=== PATIENT | male | born 1970 | race Caucasian/White ===

== ENCOUNTER 2016-05-14 09:33 | Emergency (ER) | payer MEDICAID ==
[2016-05-14 09:44] VITALS: TEMP 98.8; BMI 28.3
[2016-05-14] MEDS ORDERED: NS 1,000 ML IV ONE (09:59)
[2016-05-14] MEDS ORDERED: SODIUM CHLORIDE 0.9% 10 ML FLUSH FLUSH PRN (09:59)
--- NOTE | 2016-05-14 10:08 | EDPRACDOC ---
- General Information Chief Complaint: Generalized Weakness Information Source: Patient Mode of Arrival: Car Home Medications: Home Medications Gabapentin 100 mg PO TID #90 cap 05/14/16 Sitagliptin Phos/Metformin HCl [Janumet 50-500 mg Tablet] 1 each PO BID #60 tablet 05/14/16 Allergies/Adverse Reactions: Allergies Allergy/AdvReac Type Severity Reaction Status Date / Time No Known Allergies Allergy Verified 05/14/16 09:42 - History of Present Illness Onset: 1 week Complains Of: Reports: High Blood Sugar, Polyuria, Polydipsia Relevant History: Reports: NIDDM Medication Use: Reports: Normal Blood Glucose Result: 256 Vomiting - TNTC: No Associated Signs and Symptoms: Reports: Cough Abdominal Pain Location: Reports: None Abdominal Pain Quality: Reports: None Other History: Pt states tingling in hands and feet, high BS, polyuria and polydipsia, congestion, cough x 1 week. Pt states yrs ago he was on insulin, lost wt and was put on metformin then stopped everything due to diet controlled for yrs. Pt states about 1 months ago he became sick and was started back on metformin. Pt states he feels like this isn't working. Denies fever, earache, sore throat, cp, sob, abd pain, changes in bowel or bladder, rash. ED Past Medical History - History Reviewed Yes Nurses notes reviewed and agree except as marked - Patient Medical History Psychological History: Reports: Depression Systemic History: Reports: Diabetes - Social Medical History Smoking Status: Heavy tobacco smoker (5 or more cigarettes/day or daily pipe/ cigar) ETOH: None Substance Abuse: None EDM Review of Systems - Review of Systems Constitutional: No Symptoms Reported. negative: Fever, Chills, Weakness, Fatigue, Loss of Appetite Ears: No Symptoms Reported. negative: Pain, Hearing Loss, Drainage, Ear Pulling Throat: No Symptoms Reported. negative: Pain, Swelling Nose: Congestion Mouth: No Symptoms Reported. negative: Pain, Drooling Respiratory: Cough Cardiovascular: No Symptoms Reported. negative: Chest Pain, Palpitations, Syncope, Edema, Orthopnea, PND, Skin Mottling, Cyanosis Gastrointestinal: No Symptoms Reported. negative: Pain, Constipation, Nausea, Vomiting, Diarrhea, Melena, Formula Intolerance Genitourinary: No Symptoms Reported. negative: Dysuria, Hematuria, Frequency, Discharge, Bleeding, Testicular Pain, Neurological: Tingling. negative: No Symptoms Reported, Dizziness, Gait Difficulty, Headache, Numbness, Seizure, Speech Difficulty, Weakness Musculoskeletal: No Symptoms Reported. negative: Neck, Chestwall, Ribs, Back, Shoulder, Arm, Elbow, Forearm, Wrist, Hand, Pelvis, Hip, Femur, Knee, Leg, Ankle , Foot Integumentary: No Symptoms Reported. negative: Itching, Rash, Bruising, Wound Allergic/Immunologic: No Symptoms Reported. negative: Hives, Itching Hematologic: No Symptoms Reported. negative: Lymphadenopathy, Easy Bruising, Easy Bleeding Endocrine: Excessive Thirst, Polyuria Psychiatric: No Symptoms Reported. negative: Anxiety, Depression, Hallucinations, Insomnia, Suicidal - Physical Exam Constitutional: Alert Oriented to: Time, Person, Place Last recorded Vital Signs: Last Vital Signs Temp 98.8 F 05/14/16 09:42 Pulse 102 05/14/16 09:42 Resp 18 05/14/16 09:42 BP 119/80 05/14/16 09:42 Pulse Ox 97 05/14/16 09:42 Oxygen Pulse Oxygen Saturation 97 O2 Device Room Air Oxygen Flow Rate Fraction of Inspired Oxygen ( FIO2) - HEENT Head: Normal ( normocephalic) Eye Exam: Normal (PERRL, EOMI, Sclera white) Oropharynx: Normal (Pharynx:Moist without exudate,Gums-no swelling) Tympanic Membrane: Normal ENT EAC: Normal Nose: No Symptoms Reported (septum midline) Neck: Normal (FROM, trachea at midline) - Respiratory/Cardiovascular Respiratory: Normal - CTA (BBS clear to auscultation without adventitious sounds ) Cardiovascular: Normal (RRR without murmur, gallop or rub) - GI Auscultation: Normal (NABS) Palpation: Normal (Soft,No rebound or guarding, non distended) Tenderness: Non tender - Musculoskeletal Back: Normal (Non-Tender) Extremities: Normal (Normal tone, Pulses 2+ No cyanosis or edema, FROM) - Integumentary Skin: Normal, Warm, Dry Lymphatics: Normal (no adenopathy) - Neurologic Memory Impaired: Normal Motor Function: Normal (Normal tone, Pulses 2+ No cyanosis or edema, FROM) Mood Description: Normal Perception: Normal - Differential Diagnosis Dehydration, Diabetic Ketoacidosis, Hyperglycemia - Results 05/14/16 10:10 05/14/16 10:10 POC Capillary Glucose 256 MG/DL (70-99) H 05/14/16 09:46 Lab Results 05/14/16 09:46 POC Capillary Glucose 256 H - Additional Information discussed with thad Thao to d/c home - Departure Disposition: Home Condition: Good Final Diagnosis: Hyperglycemia Diabetic neuropathy Qualifiers: Diabetes mellitus type: type 2 Diabetes mellitus complication detail: diabetic polyneuropathy Qualified Code(s): E11.42 - Type 2 diabetes mellitus with diabetic polyneuropathy Instructions: Diabetic Neuropathy (ED), Diabetes Mellitus Type 2 in Adults (ED) , Managing Diabetes During Sick Days (ED), Diabetes and Exercise Education/Counseling Given To: Patient Education/Counseling Given Regarding: Diagnosis, Treatment, Follow Up Referrals: None,No Provider [Primary Care Provider] - One Week Gavin Mei MD [Staff Physician] - One Week Prescriptions: Gabapentin 100 mg PO TID #90 cap Sitagliptin Phos/Metformin HCl [Janumet 50-500 mg Tablet] 1 each PO BID #60 tablet Forms: Patient Discharge Instructions, ED Discharge Instructions Additional Instructions: Follow up with Personal MD for continued management. Return for worse or different symptoms.
[2016-05-14 10:23] LABS: AUTOMATED BASOPHIL 0.5 % (0-2); AUTOMATED EOSINOPHIL 4.4 % (0-5); AUTOMATED MONOCYTE 10.4 % (3-10); AUTOMATED NEUTROPHIL 54.7 % (45-76); MPV 8.8 fL (7.4-10.4)
[2016-05-14 10:26] LABS: VENOUS BEb -2.9 (+/- 2); VENOUS TCO2 25.1 MMOL/L (23-27)
[2016-05-14 10:43] LABS: BLOOD UREA NITROGEN 18 MG/DL (9-20); CALCIUM 8.9 MG/DL (8.4-10.2); CALCULATED OSMOLALITY 278 MOs/Kg (270-290); CHLORIDE 102 mEq/L (98-107); GLUCOSE 282 MG/DL (70-99); SODIUM LEVEL 138 mEq/L (137-146); TOTAL PROTEIN 7.9 G/DL (6.3-8.2)
[2016-05-14 11:27] LABS: LEUKOCYTES/URINE NEG (NEGATIVE); NITRITE/URINE NEG (NEGATIVE); RBC/URINE 0-2 (0-2); URINE OCCULT BLOOD NEG (NEG/TRACE); WBC/URINE 0-2 (0-2)
[2016-05-14 11:48] VITALS: BP 109/65; PULSE 71
== END 2016-05-14 11:53 | disposition home or self-care (01) ==
LOC: ED 09:33
DX: E11.65 Type 2 diabetes mellitus with hyperglycemia (principal); E11.42 Type 2 diabetes mellitus with diabetic polyneuropathy
CPT/HCPCS: 36415; 80053; 81001; 82803; 82962; 85025; 96360; 99283